=== PATIENT | female | born 1955 ===

== ENCOUNTER 2023-08-13 11:53 | Outpatient (CLI) | payer MEDICARE, SELFPAY ==
--- NOTE | ~2023-08-13 | CT_ITS ---
EXAMINATION: CT lumbar spine wo con DATE: 08/13/2023 12:16 INDICATION: Lumbar radiculopathy. Low back pain. TECHNIQUE: Computed tomography (CT) of the lumbar spine was performed without intravenous contrast. A utomated exposure control and iterative reconstruction technique were employed. The dose-length produ ct was 804.02 mGy-cm. COMPARISON: None FINDINGS: There is 7 degrees levocurvature of lumbar spine. There is 3 mm retrolisthesis of L2 on L3. There is mild chronic anterior wedging of L2 vertebral body. There is mildly decreased disc height a t L1-L2 and moderately decreased disc height at L2-L3 and L5-S1. The following disc levels are specif ically discussed: L1-L2: The disc does not extend beyond the endplate margin. There is severe bilateral facet joint ost eoarthritis. There is mild left neural foraminal stenosis. There is mild central canal stenosis. L2-L3: The disc is bulging. There is moderate bilateral facet joint osteoarthritis. There is mild rig ht and moderate left neural foraminal stenosis. There is mild central canal stenosis. L3-L4: The disc is bulging. There is moderate bilateral facet joint osteoarthritis. There is mild rig ht and moderate left neural foraminal stenosis. There is mild central canal stenosis. L4-L5: The disc is bulging. There is severe bilateral facet joint osteoarthritis. There is mild bilat eral neural foraminal stenosis. There is mild central canal stenosis. L5-S1: The disc is bulging. There is severe bilateral facet joint osteoarthritis. There is moderate b ilateral neural foraminal stenosis. There is mild central canal stenosis. IMPRESSION: 1. Moderate lumbar spondylosis. Reviewed, dictated and finalized at location E.
== END 2023-08-13 11:54 ==
DX: M43.06 Spondylolysis, lumbar region (principal)
CPT/HCPCS: 72131